=== PATIENT | female | born 1985 | race Caucasian/White ===

== ENCOUNTER 2016-08-17 14:16 | Emergency (ER) | payer OTHER ==
[~2016-08-17] VITALS: Ht 157.5 cm; Wt 78.5 kg
[~2016-08-17 14:16] MED LIST: MOTRIN 800MG T800 MG PO; NATURAL IRON65 MG PO; PERCOCET 325 MG1 TA2 PO; PRENATAL1 TA2 PO
--- NOTE | 2016-08-17 14:46 | ED GI/GU/ABDOMINAL COMPLAINT ---
History of Present Illness General Chief Complaint: Uterine Contractions(Pregnacy) Stated Complaint: 12 WKS PREG, BLEEDING X 1/2HR,CRAMPING Source: patient Exam Limitations: no limitations Allergies Coded Allergies: prednisone (Mild, TACHYCARDIA 08/17/16) Reconcile Medications No Known Home Medications Triage Note: 31 Y/O FEMALE C/O 30 MIN ONSET DIFFUSE ABDOMINAL "CRAMPING" AND VAGINAL BLEEDING. STATES SHE IS 11 WEEKS 6 DAYS , OB [facility], . DENIES COMPLICATIONS. STATES SHE HAD "GUSH OF BLOOD" AND HAS CHANGED PAD X 1 SINCE ONSET. Triage Nurses Notes Reviewed? yes ? y Is pt currently ? No HPI: 31-year-old female, who is approximately 11 weeks 6 days here with complaints of sudden onset of pelvic cramping pain which is mild and a"gush "of vaginal bleeding that occurred approximately 1 hour prior to arrival. She was standing when this occurred, not straining herself. Symptoms of pain are mild, cramping sensation. She noticed bright red blood, no clots. She placed a pad on and has not changed since. She states she has had a documented IUP on ultrasound and has had an uncomplicated urgency this far. She sees the [facility] office in [place]. (SARBJIT CAI) Vital Signs & Intake/Output Vital Signs & Intake/Output Vital Signs Date Time Temp Pulse Resp B/P Pulse O2 O2 Flow FiO2 Ox Delivery Rate 08/17 1617 97.8 89 18 125/80 99 Room Air 08/17 1420 97.8 108 18 130/84 100 Room Air Past History Travel History Traveled to [place] past 21 day No Medical History Any Pertinent Medical History? see below for history Neurological: NONE EENT: NONE Cardiovascular: NONE Respiratory: NONE Gastrointestinal: NONE Hepatic: NONE Renal: NONE Musculoskeletal: tailbone pain as listed above Psychiatric: history of depression at age 16 to Wellbutrin for several years currently on no medication in stable Endocrine: maternal obesity with BMI of 41.2/late onset gestational diabetes Blood Disorders: NONE Cancer(s): NONE [employer]/Reproductive: NONE Other Medical Hx: Personal history of obesity. Starting BMI of this was 34 her current BMI is 41 Also family history of familial hemochromatosis. Patient was tested and found not to be a carrier for this History of MRSA: No History of VRE: No History of CDIFF: No Surgical History Surgical History: wisdom teeth 2012 Psychosocial History Who do you live with Family Services at Home None What is your primary language Thai Tobacco Use: Never used Family History Family History, If Any: Relation not specified for: *No pertinent family history Hx Contributory? No (SARBJIT CAI) Review of Systems Review of Systems Constitutional: Reports: see HPI. EENTM: Reports: no symptoms. Respiratory: Reports: no symptoms. Cardiovascular: Reports: no symptoms. GI: Reports: see HPI. Genitourinary: Reports: no symptoms. Musculoskeletal: Reports: no symptoms. Skin: Reports: no symptoms. Neurological/Psychological: Reports: no symptoms. Hematologic/Endocrine: Reports: no symptoms. Immunologic/Allergic: Reports: no symptoms. All Other Systems: Reviewed and Negative (SARBJIT CAI) Physical Exam Physical Exam Respiratory: normal breath sounds Cardiovascular: regular rate/rhythm Gastrointestinal: normal bowel sounds, soft, non-tender, no organomegaly Comments: Well-developed well-nourished no apparent distress. HEENT: Atraumatic, extraocular motion intact Neck: Supple, no lymphadenopathy Back: Nontender Respiratory: No respiratory distress Extremities: No edema, full range of motion Neuro: Alert and oriented x3 Psych: Mood affect normal, normal memory normal judgment. Skin: Warm and dry, no rash on exposed skin Core Measures ACS in differential dx? No Severe Sepsis Present: No Septic Shock Present: No (SARBJIT CAI) Progress Differential Diagnosis: AAA, AMI, appendicitis, biliary colic, bowel obstruction , colon cancer, cholecystitis, diverticulitis, ectopic , endometritis, esophageal varices, gastritis, hepatitis, hernia, hemorrhoids, ischemic bowel, inflamm bowel dis, intrauterine , kidney stone, Carmita-Shavonne tear, ovarian cyst, ovarian torsion, pancreatitis, PID/cervicitis, peptic ulcer, PUD/ GERD, perforated viscous, SBO, threatened AB, UTI/pyelo Diagnostic Imaging: Viewed by Me: Ultrasound. Discussed w/RAD: Ultrasound. Radiology Impression: PATIENT: LITTLE BURKS PRESENT AGE: 31 PATIENT ACCOUNT NO: [id number] : 83 LOCATION: [facility] ORDERING PHYSICIAN: SARBJIT SCOTT SERVICE DATE: 08/17/16 EXAM TYPE: US - US - VIABILITY EXAMINATION: US , VIABILITY CLINICAL INFORMATION : 11 weeks 6 days single IUP. Vaginal bleeding. Pelvic cramping. COMPARISON: None. TECHNIQUE: Transabdominal grayscale ultrasound imaging. Spectral Doppler and color Doppler exam was utilized. LMP: Uncertain FINDINGS: UTERUS: Single intrauterine gestation. There is motion and cardiac activity. heart rate 152 bpm. Mean gestational sac diameter 5.94 cm. 10 weeks 6 days. biometrics: 1. Head circumference. 5.51 cm. 12 weeks 0 days. +/- 1 week 2 days. 2. Abdominal circumference. 5.33 cm. 12 weeks 2 days. +/- 1 week 5 days. Ultrasound gestational age 11 weeks 5 days. 03/03/2017. ADNEXA: Right ovary not seen. Left ovary: Ovarian vascularity:Doppler demonstrates both arterial and venous vascular flow in left ovary. No evidence of ovarian torsion. Left Ovary: 2.8 x 2 x 3 cm Cul-de-sac: No Fluid IMPRESSION: Single intrauterine gestation with estimated gestational age by ultrasound 11 weeks 5 days. DICTATED BY: THUAN VERA MD DATE/TIME DICTATED:08/17/161535 TESTING TECH:ETHAN DATE/ TIME TRANSCRIBED:08/17/161535 Initial ED EKG: none Comments: Will obtain pelvic ultrasound for viability study and obtain labs. Patient is comfortable and does not wish for anything for pain. Reevaluated, Patient seen and examined by Dr. Tirado as well, her ultrasound shows a single intrauterine with a heart rate of 154 and normal motion. No abnormal bleeding. This is discussed with patient, she has a threatened miscarriage, she requires rest, encourage by mouth fluids, close follow-up with philosophy specialist tomorrow. Return here with significant vaginal bleeding fever or flulike illness. Tylenol for pain. She understands and agrees with plan. (SARBJIT CAI) Plan of Care: Orders Procedure Date/time Status URINALYSIS 08/17 142 Complete HUMAN BETA HCG TITRE 08/17 142 Complete COMPREHENSIVE METABOLIC PANEL 08/17 142 Complete CBC WITHOUT DIFFERENTIAL 08/17 142 Complete TYPE & SCREEN (NOT X-MATCH) 08/17 142 Complete Laboratory Tests 08/17/16 1601: Urine Color YEL, Urine Clarity HAZY H, Urine pH 7.0, Ur Specific Downs 1.010, Urine Protein NEG, Urine Ketones NEG, Urine Nitrite NEG, Urine Bilirubin NEG, Urine Urobilinogen 0.2, Ur Leukocyte Esterase NEG, Ur Microscopic SEDIMENT EXAMINED, Urine RBC >75 H, Urine WBC 1-3 H, Ur Epithelial Cells FEW, Urine Hemoglobin LARGE H, Urine Glucose NEG 08/17/16 1430: Anion Gap 11, Estimated GFR > 60, BUN/Creatinine Ratio 18.3, Glucose 98, Calcium 9.1, Total Bilirubin 0.3, AST 17, ALT 35, Alkaline Phosphatase 65, Total Protein 7.1, Albumin 3.9, Globulin 3.2, Albumin/Globulin Ratio 1.2, Beta HCG, Quant 27144.0, CBC w Diff NO MAN DIFF REQ, RBC 4.33, MCV 92.7, MCH 31.6 H, RDW 13.3, MPV 7.6, Gran % 65.2, Lymphocytes % 25.6, Monocytes % 6.2, Eosinophils % 2.6, Basophils % 0.4, Absolute Granulocytes 6.0, Absolute Lymphocytes 2.3, Absolute Monocytes 0.6, Absolute Eosinophils 0.2, Absolute Basophils 0, PUBS MCHC 34.1 Departure Departure Disposition: HOME OR SELF CARE Condition: Stable Clinical Impression Primary Impression: Threatened in first trimester Secondary Impressions: Vaginal bleeding before 22 weeks gestation Referrals: JORGITO HUERTAS,ALEJANDRO SERNA MD,WENDI Carpio (PCP/Family) Additional Instructions: Bed rest as much as possible. Drink plenty of fluids. Follow-up with your OB/ [employer] doctor tomorrow, call for an appointment. Return to the ER with worsening abdominal pain, fever, significant bleeding more than 1 pad per hour for several hours, passing any tissue or large blood clots. Departure Forms: Customer Survey General Discharge Information Prescriptions: Current Visit Scripts No Known Home Medications (SARBJIT CAI) PA/CERTIFIED RECREATIONAL THERAPIST Co-Sign Statement Statement: ED Attending supervision documentation- [X] I saw and evaluated the patient. I have also reviewed all the pertinent lab results and diagnostic results. I agree with the findings and the plan of care as documented in the PA's/CERTIFIED RECREATIONAL THERAPIST's documentation. [] I have reviewed the ED Record and agree with the PA's/CERTIFIED RECREATIONAL THERAPIST's documentation. [] Additions or exceptions (if any) to the PAs/CERTIFIED RECREATIONAL THERAPIST's note and plan are summarized below: [] (SHERMAN HUERTAS,SAPNA Lopez)
[2016-08-17 14:47] LABS: ABSOLUTE BASOPHIL COUNT 0 /CUMM (0.0-0.2); ABSOLUTE EOSINOPHIL COUNT 0.2 /CUMM (0.0-0.7); ABSOLUTE LYMPH COUNT 2.3 /CUMM (1.2-3.4); ABSOLUTE MONOCYTE COUNT 0.6 /CUMM (0.10-0.60); BASOPHIL % 0.4 % (0.0-2.0); EOSINOPHIL % 2.6 % (0-5); GRANULOCYTE % 65.2 % (42.2-75.2); HEMATOCRIT 40.2 % (37-47); MEAN CORPUSCULAR HGB 31.6 PG (27.0-31.0); MEAN CORPUSCULAR HGB CONC 34.1 G/DL (33.0-37.0); MEAN CORPUSCULAR VOLUME 92.7 FL (81.0-99.0); MEAN PLATELET VOLUME 7.6 FL (7.4-10.4); PLATELET COUNT 238 /CUMM (130-400); RBC DISTRIBUTION WIDTH 13.3 % (11.5-14.5); RED BLOOD CELL CT 4.33 /CUMM (4.20-5.40); WHITE BLOOD CELL COUNT 9.1 /CUMM (4.8-10.8)
--- NOTE | 2016-08-17 15:46 | ULTRASOUND REPORT ---
EXAMINATION: US , VIABILITY CLINICAL INFORMATION: 11 weeks 6 days single IUP. Vaginal bleeding. Pelvic cramping. COMPARISON: None. TECHNIQUE: Transabdominal grayscale ultrasound imaging. Spectral Doppler and color Doppler exam was utilized. LMP: Uncertain FINDINGS: UTERUS: Single intrauterine gestation. There is motion and cardiac activity. heart rate 152 bpm. Mean gestational sac diameter 5.94 cm. 10 weeks 6 days. biometrics: 1. Head circumference. 5.51 cm. 12 weeks 0 days. +/- 1 week 2 days. 2. Abdominal circumference. 5.33 cm. 12 weeks 2 days. +/- 1 week 5 days. Ultrasound gestational age 11 weeks 5 days. 03/03/2017. ADNEXA: Right ovary not seen. Left ovary: Ovarian vascularity:Doppler demonstrates both arterial and venous vascular flow in left ovary. No evidence of ovarian torsion. Left Ovary: 2.8 x 2 x 3 cm Cul-de-sac: No Fluid IMPRESSION: Single intrauterine gestation with estimated gestational age by ultrasound 11 weeks 5 days.
[2016-08-17 16:17] VITALS: BP 125/80
== END 2016-08-17 16:19 ==
LOC: ERH 14:16
PROVIDERS: Emergency Medicine
DX: O20.0 Threatened abortion (principal)
CPT/HCPCS: 81001